=== PATIENT | female | born 1980 | race Caucasian/White ===

== ENCOUNTER 2017-03-24 06:16 | Day surgery (SDC) | payer MEDICAID ==
[~2017-03-24] VITALS: Ht 160 cm; Wt 78.0 kg
[~2017-03-24 06:16] MED LIST: SODIUM CHLORIDE 0.9% 1,000 ML IV ONE; ZOLP10 PO
[2017-03-24] MEDS ORDERED: [UNRECOGNIZED DRUG - CODE] IM (06:35)
[2017-03-24] MEDS ORDERED: SODIUM CHLORIDE 0.9% 1,000 ML IV ONE (06:45)
[2017-03-24 07:08] LABS: GLUCOSE,POINT OF CARE 98 MG/DL (70-110)
[2017-03-24] MEDS ORDERED: LIDOCAINE HCL/PF 2% 5 ML VIAL INJ ONE (12:00)
[2017-03-24] MEDS ORDERED: PROPOFOL 1% 20 ML VIAL IVP ONE (12:00)
== END 2017-03-24 10:15 | disposition home or self-care (01) ==
LOC: SURGERY 06:16
PROVIDERS: ATTEND Specialist
DX: K57.90 Diverticulosis of intestine, part unspecified, without perforation or abscess without bleeding (principal); K64.1 Second degree hemorrhoids; K76.0 Fatty (change of) liver, not elsewhere classified; N35.9 Urethral stricture, unspecified; F41.9 Anxiety disorder, unspecified; Z88.2 Allergy status to sulfonamides; Z90.710 Acquired absence of both cervix and uterus; Z90.722 Acquired absence of ovaries, bilateral; Z88.8 Allergy status to other drugs, medicaments and biological substances; Z87.19 Personal history of other diseases of the digestive system; Z87.442 Personal history of urinary calculi; Z80.41 Family history of malignant neoplasm of ovary; Z80.49 Family history of malignant neoplasm of other genital organs
CPT/HCPCS: 45378; 82962; J2704; J3490; J7030

== ENCOUNTER 2017-05-07 08:46 | Day surgery (SDC) | payer MEDICAID ==
[~2017-05-07] VITALS: Ht 160 cm; Wt 79.5 kg
[~2017-05-07 08:46] MED LIST changes: -ZOLP10 PO; +ZOLP10TA7 PO; +[UNRECOGNIZED DRUG - CODE] IM
== END 2017-05-07 14:05 | disposition home or self-care (01) ==
LOC: SURGERY 08:46
PROVIDERS: ATTEND Internal Medicine Gastroenterology
DX: K90.0 Celiac disease (principal); K21.9 Gastro-esophageal reflux disease without esophagitis; Z88.2 Allergy status to sulfonamides; Z88.8 Allergy status to other drugs, medicaments and biological substances; Z90.710 Acquired absence of both cervix and uterus; Z98.890 Other specified postprocedural states
CPT/HCPCS: 88305; J7030